=== PATIENT | male | born 1935 | race Caucasian/White ===

== ENCOUNTER 2016-07-06 07:51 | Inpatient (IN) | payer OTHER, MEDICARE ==
[~2016-07-06] VITALS: Ht 162.6 cm; Wt 74.0 kg
[~2016-07-06 07:51] MED LIST: Aspirin E.C. PO; CILOSTAZOL100 MG PO; ENALAPRIL MALEA20 MG PO; HYDRALAZINE HCL10 MG PO; HYDROCHLOROTHIA50 MG PO; Lopressor PO; NAPROSYN500 MG PO; TERAZOSIN HCL2 MG PO
[2016-07-06 08:35] LABS: EOSINOPHIL (%) 1.6 % (0-5); EOSINOPHIL COUNT 0.1 K/uL (0-0.3); IMMATURE GRANULOCYTE (%) 0.2 % (0.0-0.7); IMMATURE GRANULOCYTE COUNT 0.1 K/uL; MCH 31.7 PG (29.0-34.0); MCHC 34.8 G/DL (30.0-36.0); MCV 91.3 FL (86-99); MEAN PLAT.VOLUME 10.1 uM^3 (9.0-12.4); MONOCYTE (%) 8.2 % (3-12); MONOCYTE COUNT 0.4 K/uL (0-0.8); NEUTROPHIL (%) 69.3 % (45-76); NEUTROPHIL COUNT 3.4 K/uL (1.8-6.4); PLATELET COUNT 143 K/uL (156-360); RBC DIS.WIDTH-CV 13.6 % (11.8-14.6); RED BLOOD COUNT 4.38 M/uL (4.00-5.50); WHITE BLOOD COUNT 4.9 K/uL (4.1-10.2)
[2016-07-06 08:45] LABS: CHLORIDE 108 mEq/L (99-109); POTASSIUM 3.6 mEq/L (3.7-5.4); SODIUM 141 mEq/L (136-147)
[2016-07-06 08:46] LABS: INTER. NORMALIZED RATIO 1.1; PROTHROMBIN TIME 10.9 (9.2-11.2); PTT 27.5 (25-32)
[2016-07-06 08:48] LABS: ANION GAP 12 MEQ/L (2-14)
[2016-07-06 08:51] LABS: GFR ESTIMATE (CALCULATED) 56 mL/min/
[2016-07-06 08:52] LABS: UREA NITROGEN (BUN) 27 mg/dL (9-23)
[2016-07-06 08:54] LABS: TROP-I INTERPRETATION NEGATIVE; TROPONIN-I < 0.01 ng/mL (0.0-0.30)
[2016-07-06 08:57] LABS: GLUCOSE 146 mg/dL (70-99)
[2016-07-06] MEDS ORDERED: ASPIR-LOW81 MG PO (11:53)
[2016-07-06] MEDS ORDERED: LOPRESSOR25 MG PO (11:54)
[2016-07-06] MEDS ORDERED: TAMSULOSIN HCL0.4 MG PO (11:55)
[2016-07-06] MEDS ORDERED: LIPITOR40 MG PO (11:55)
[2016-07-06 17:25] VITALS: BP 175/80
[2016-07-06 18:11] LABS: TROP-I INTERPRETATION NEGATIVE; TROPONIN-I 0.02 ng/mL (0.0-0.30)
[2016-07-06 20:00] VITALS: BP 165/85
[2016-07-07] VITALS: BP 155/74
[2016-07-07 01:25] LABS: TROP-I INTERPRETATION NEGATIVE; TROPONIN-I 0.01 ng/mL (0.0-0.30)
[2016-07-07 04:00] VITALS: BP 165/74
[2016-07-07 06:36] LABS: ANION GAP 9 MEQ/L (2-14); CHLORIDE 106 MEQ/L (99-109); GFR ESTIMATE (CALCULATED) > 59 mL/min/; HDL CHOLESTEROL 32 MG/DL (Desirable>=40); LDL CHOLESTEROL 56 mg/dL (Desirable<100); NON-HDL CHOLESTEROL 77 mg/dL (Desirable<160); POTASSIUM 3.8 MEQ/L (3.7-5.4); SAMPLE HEMOLYSIS CHECK 0; SAMPLE ICTERIC CHECK 0; SAMPLE LIPEMIA CHECK 0; SODIUM 140 MEQ/L (136-147); TOTAL CHOLESTEROL 109 mg/dL (Desirable<200); TRIGLYCERIDES 104 MG/DL (Normal: <150); UREA NITROGEN (BUN) 21 mg/dL (9-23)
[2016-07-07 06:41] LABS: GLUCOSE 109 mg/dL (70-99)
[2016-07-07 08:36] VITALS: BP 174/81
[2016-07-07 11:31] VITALS: BP 127/60
[2016-07-07 16:16] VITALS: BP 183/77
[2016-07-07 19:21] VITALS: BP 150/65
[2016-07-08] VITALS: BP 135/78
[2016-07-08 04:00] VITALS: BP 159/82
[2016-07-08 08:18] VITALS: BP 186/90
[2016-07-08 13:24] VITALS: BP 165/72
[2016-07-08 16:02] VITALS: BP 184/84
[2016-07-08 18:59] VITALS: BP 156/65
[2016-07-09] VITALS: BP 148/75; BP 160/0
[2016-07-09 04:00] VITALS: BP 150/89
[2016-07-09 07:27] VITALS: BP 154/74
[2016-07-09 11:42] VITALS: BP 165/73
[2016-07-09] MEDS ORDERED: PROCARDIA20 MG PO (13:26)
== END 2016-07-09 14:27 | disposition home or self-care (01) | DRG 310 ==
LOC: EME 07:51 → EDOF 09:50 → 4EAST 09:50
PROVIDERS: Emergency Medicine; Internal Medicine
DX: R00.2 Palpitations (principal); N40.1 Benign prostatic hyperplasia with lower urinary tract symptoms; I27.2 Other secondary pulmonary hypertension; R33.8 Other retention of urine; I10 Essential (primary) hypertension; E78.5 Hyperlipidemia, unspecified; E87.6 Hypokalemia; N19 Unspecified kidney failure; I73.9 Peripheral vascular disease, unspecified; I44.0 Atrioventricular block, first degree; N13.9 Obstructive and reflux uropathy, unspecified; I35.0 Nonrheumatic aortic (valve) stenosis; R94.31 Abnormal electrocardiogram [ECG] [EKG]; I34.2 Nonrheumatic mitral (valve) stenosis; N28.1 Cyst of kidney, acquired; N20.0 Calculus of kidney; Z60.2 Problems related to living alone; Z87.891 Personal history of nicotine dependence; Z82.3 Family history of stroke; Z80.0 Family history of malignant neoplasm of digestive organs
CPT/HCPCS: 36415; 71010; 76770; 80048; 80053; 80061; 81003; 82306; 82607; 83036 GA; 84439; 84443; 84484; 85025; 85610; 85730; 87086; 93005; 93306; 99281; 99285; G0103; J3480

== ENCOUNTER 2016-07-21 21:21 | Inpatient (IN) | payer OTHER, MEDICARE ==
[~2016-07-21] VITALS: Ht 170.2 cm; Wt 69.1 kg
[~2016-07-21 21:21] MED LIST changes: +ASPIR-LOW81 MG PO; +LIPITOR40 MG PO; +LOPRESSOR25 MG PO; +PROCARDIA20 MG PO; +TAMSULOSIN HCL0.4 MG PO
[2016-07-21 21:45] LABS: HEMATOCRIT 38.1 % (38.0-50.0); MCH 30.9 PG (29.0-34.0); MCHC 34.4 G/DL (30.0-36.0); MCV 89.9 FL (86-99); RBC DIS.WIDTH-SD 41.9 % (39-53); RED BLOOD COUNT 4.24 M/uL (4.00-5.50)
[2016-07-21 21:56] LABS: CHLORIDE 105 mEq/L (99-109)
[2016-07-21 21:57] LABS: POTASSIUM 4.3 mEq/L (3.7-5.4); SODIUM 141 mEq/L (136-147)
[2016-07-21 21:59] LABS: GLUCOSE 113 mg/dL (70-99)
[2016-07-21 22:00] LABS: ANION GAP 13 MEQ/L (2-14)
[2016-07-21 22:01] LABS: TOTAL BILIRUBIN 0.8 mg/dL (0.0-1.0)
[2016-07-21 22:02] LABS: ALKALINE PHOSPHATASE 70 IU/L (3-129); GFR ESTIMATE (CALCULATED) 28 mL/min/
[2016-07-21 22:03] LABS: MEAN PLAT.VOLUME 10.4 uM^3 (9.0-12.4); PLATELET COUNT 205 K/uL (156-360)
[2016-07-21 22:04] LABS: UREA NITROGEN (BUN) 44 mg/dL (9-23)
[2016-07-21 22:54] LABS: LIPASE 42 U/L (1.0-51.0)
[2016-07-21 22:59] LABS: TROP-I INTERPRETATION NEGATIVE; TROPONIN-I 0.02 ng/mL (0.0-0.30)
[2016-07-21 23:27] LABS: ADD MIUA? NO; BILIRUBIN NEGATIVE; BLOOD NEGATIVE; COLOR YELLOW ((YELLOW)); GLUCOSE (STRIP) NEGATIVE; KETONES NEGATIVE; LEUKOCYTES NEGATIVE; NITRITE NEGATIVE; PROTEIN (STRIP) NEGATIVE; SPECIFIC GRAVITY 1.014 (1.000-1.030); UCUL ADDED? NO; UROBILINOGEN 0.2 MG/DL (0.2-1.0)
[2016-07-22 05:54] VITALS: BP 166/66
[2016-07-22 07:47] VITALS: BP 151/59
[2016-07-22 09:12] LABS: HEMATOCRIT 38.8 % (38.0-50.0); MCH 31.4 PG (29.0-34.0); MCHC 34.5 G/DL (30.0-36.0); MCV 90.9 FL (86-99); MEAN PLAT.VOLUME 10.8 uM^3 (9.0-12.4); PLATELET COUNT 206 K/uL (156-360); RBC DIS.WIDTH-CV 13.3 % (11.8-14.6); RBC DIS.WIDTH-SD 44.1 % (39-53); RED BLOOD COUNT 4.27 M/uL (4.00-5.50); WHITE BLOOD COUNT 5.6 K/uL (4.1-10.2)
[2016-07-22 09:32] LABS: ALKALINE PHOSPHATASE 67 IU/L (3-129); ANION GAP 10 MEQ/L (2-14); CHLORIDE 106 MEQ/L (99-109); GFR ESTIMATE (CALCULATED) 44 mL/min/; GLUCOSE 111 mg/dL (70-99); POTASSIUM 4.2 MEQ/L (3.7-5.4); SAMPLE HEMOLYSIS CHECK 0; SAMPLE ICTERIC CHECK 0; SAMPLE LIPEMIA CHECK 0; SODIUM 139 MEQ/L (136-147); UREA NITROGEN (BUN) 31 mg/dL (9-23)
[2016-07-22] MEDS ORDERED: LIPITOR40 MG PO (10:23)
[2016-07-22] MEDS ORDERED: HYDROCHLOROTHIA25 MG PO (10:24)
[2016-07-22 12:02] VITALS: BP 151/73
[2016-07-22 15:32] VITALS: BP 138/77
[2016-07-22 20:02] VITALS: BP 132/65
[2016-07-23] VITALS (7 sets, daily range): BP systolic 109–164; BP diastolic 53–74
[2016-07-24 03:29] VITALS: BP 121/58
[2016-07-24 07:37] VITALS: BP 143/65
[2016-07-24 12:17] VITALS: BP 125/60
[2016-07-24 15:31] VITALS: BP 142/69
[2016-07-24 23:21] VITALS: BP 153/70
[2016-07-25 08:30] VITALS: BP 118/55
== END 2016-07-25 10:46 | disposition home health service (06) | DRG 699 ==
LOC: EME 21:21 → 3EAST 07-22 02:31 → EDOF 07-22 02:31 → 3EAST 07-22 05:12
PROVIDERS: Internal Medicine
DX: N13.9 Obstructive and reflux uropathy, unspecified (principal); N17.9 Acute kidney failure, unspecified; K59.00 Constipation, unspecified; N40.1 Benign prostatic hyperplasia with lower urinary tract symptoms; R33.8 Other retention of urine; E86.0 Dehydration; K52.9 Noninfective gastroenteritis and colitis, unspecified; I10 Essential (primary) hypertension; E78.5 Hyperlipidemia, unspecified; N20.0 Calculus of kidney; N28.1 Cyst of kidney, acquired; K80.20 Calculus of gallbladder without cholecystitis without obstruction; I48.2 Chronic atrial fibrillation; Z80.0 Family history of malignant neoplasm of digestive organs; Z82.3 Family history of stroke; J43.9 Emphysema, unspecified; M19.90 Unspecified osteoarthritis, unspecified site
CPT/HCPCS: 74176; 80053; 81003; 83690; 84484; 85027; 93005; 99281; 99285; J7030

== ENCOUNTER 2017-03-28 23:02 | Observation (INO) | payer OTHER, MEDICARE ==
[~2017-03-28] VITALS: Ht 172.7 cm; Wt 73.1 kg
[~2017-03-28 23:02] MED LIST changes: +APRESOLINE50 MG PO; -HYDRALAZINE HCL10 MG PO; +HYDROCHLOROTHIA25 MG PO
[2017-03-28 23:38] LABS: HEMATOCRIT 35.9 % (38.0-50.0); MCH 31.5 PG (29.0-34.0); MCHC 33.7 G/DL (30.0-36.0); MCV 93.5 FL (86-99); MEAN PLAT.VOLUME 10.1 uM^3 (9.0-12.4); PLATELET COUNT 154 K/uL (156-360); RBC DIS.WIDTH-CV 13.4 % (11.8-14.6); RBC DIS.WIDTH-SD 45.8 % (39-53); RED BLOOD COUNT 3.84 M/uL (4.00-5.50); WHITE BLOOD COUNT 5.9 K/uL (4.1-10.2)
[2017-03-28 23:48] LABS: CHLORIDE 107 mEq/L (99-109); SODIUM 140 mEq/L (136-147)
[2017-03-28 23:50] LABS: GLUCOSE 110 mg/dL (70-99)
[2017-03-28 23:51] LABS: ANION GAP 10 MEQ/L (2-14)
[2017-03-28 23:53] LABS: GFR ESTIMATE (CALCULATED) 47 mL/min/
[2017-03-28 23:54] LABS: UREA NITROGEN (BUN) 30 mg/dL (9-23)
[2017-03-28 23:58] LABS: TROP-I INTERPRETATION NEGATIVE; TROPONIN-I < 0.01 ng/mL (0.0-0.30)
[2017-03-29] VITALS (7 sets, daily range): BP systolic 126–198; BP diastolic 26–88
[2017-03-29] MEDS ORDERED: FINASTERIDE5 MG PO (00:08)
[2017-03-29] MEDS ORDERED: COLACE100 MG PO (00:08)
[2017-03-29 06:47] LABS: ADD MIUA? NO; BILIRUBIN NEGATIVE; BLOOD NEGATIVE; COLOR YELLOW ((YELLOW)); GLUCOSE (STRIP) NEGATIVE; KETONES NEGATIVE; LEUKOCYTES NEGATIVE; NITRITE NEGATIVE; PROTEIN (STRIP) NEGATIVE; SPECIFIC GRAVITY 1.014 (1.000-1.030); UROBILINOGEN 0.2 MG/DL (0.2-1.0)
[2017-03-29 08:51] LABS: TROP-I INTERPRETATION NEGATIVE; TROPONIN-I 0.02 ng/mL (0.0-0.30)
[2017-03-29 15:39] LABS: TROP-I INTERPRETATION NEGATIVE; TROPONIN-I 0.02 ng/mL (0.0-0.30)
[2017-03-30 03:49] VITALS: BP 130/62
[2017-03-30 05:11] LABS: EOSINOPHIL (%) 2.8 % (0-5); EOSINOPHIL COUNT 0.1 K/uL (0-0.3); HEMATOCRIT 30.6 % (38.0-50.0); IMMATURE GRANULOCYTE (%) 0.6 % (0.0-0.7); INSTRUMENT ABS NEUTROPHIL CT 3.2 K/uL; LYMPHOCYTE COUNT 1.1 K/uL (1.0-2.8); MCV 94.2 FL (86-99); MEAN PLAT.VOLUME 10.1 uM^3 (9.0-12.4); MONOCYTE (%) 10.3 % (3-12); MONOCYTE COUNT 0.5 K/uL (0-0.8); NEUTROPHIL (%) 63.6 % (45-76); NEUTROPHIL COUNT 3.2 K/uL (1.8-6.4); PLATELET COUNT 126 K/uL (156-360); RBC DIS.WIDTH-CV 13.4 % (11.8-14.6); RBC DIS.WIDTH-SD 46.5 % (39-53); RED BLOOD COUNT 3.25 M/uL (4.00-5.50)
[2017-03-30 05:38] LABS: ALKALINE PHOSPHATASE 62 IU/L (3-129); ANION GAP 8 MEQ/L (2-14); CHLORIDE 109 MEQ/L (99-109); GFR ESTIMATE (CALCULATED) 56 mL/min/; GLUCOSE 90 mg/dL (70-99); POTASSIUM 3.8 MEQ/L (3.7-5.4); SAMPLE HEMOLYSIS CHECK 0; SAMPLE ICTERIC CHECK 0; SAMPLE LIPEMIA CHECK 0; SODIUM 141 MEQ/L (136-147); TOTAL BILIRUBIN 1.5 MG/DL (0.0-1.0); UREA NITROGEN (BUN) 24 mg/dL (9-23)
[2017-03-30 07:46] VITALS: BP 190/82
[2017-03-30 10:52] VITALS: BP 138/63
[2017-03-30 16:00] VITALS: BP 178/79
== END 2017-03-30 18:42 | disposition home or self-care (01) ==
LOC: EME 23:02 → EXP 23:02 → EDOF 03-29 01:14 → 5WEST 03-29 01:14 → EDOF 03-29 01:14 → ENRESERV 03-29 01:16 → 5WEST 03-29 02:11
PROVIDERS: Internal Medicine
DX: I12.9 Hypertensive chronic kidney disease with stage 1 through stage 4 chronic kidney disease, or unspecified chronic kidney disease (principal); N18.9 Chronic kidney disease, unspecified; D64.9 Anemia, unspecified; E78.5 Hyperlipidemia, unspecified; N40.0 Benign prostatic hyperplasia without lower urinary tract symptoms; I48.0 Paroxysmal atrial fibrillation; Z87.891 Personal history of nicotine dependence; D69.6 Thrombocytopenia, unspecified; Z87.11 Personal history of peptic ulcer disease; I35.0 Nonrheumatic aortic (valve) stenosis; I73.9 Peripheral vascular disease, unspecified; Z80.0 Family history of malignant neoplasm of digestive organs; Z82.3 Family history of stroke; Z79.82 Long term (current) use of aspirin
CPT/HCPCS: 71020; 80048; 80053; 81003; 84484; 85025; 85027; 93005; 99281; 99284; G0378; J2270; J7030

== ENCOUNTER 2017-04-26 09:51 | Day surgery (SDC) | payer OTHER, MEDICARE ==
[~2017-04-26] VITALS: Ht 170.2 cm; Wt 68.0 kg
[~2017-04-26 09:51] MED LIST changes: +COLACE100 MG PO; +FINASTERIDE5 MG PO
== END 2017-04-26 17:10 | disposition short-term general hospital (02) ==
LOC: CATH 09:51 → ENRESERV 14:27 → CANRESERV 14:27 → 2SOUTH 14:28 → ENRESERV 15:47 → 2SOUTH 17:10
DX: I25.119 Atherosclerotic heart disease of native coronary artery with unspecified angina pectoris (principal); E78.5 Hyperlipidemia, unspecified; I12.9 Hypertensive chronic kidney disease with stage 1 through stage 4 chronic kidney disease, or unspecified chronic kidney disease; N18.9 Chronic kidney disease, unspecified; I65.23 Occlusion and stenosis of bilateral carotid arteries; I35.0 Nonrheumatic aortic (valve) stenosis; Z79.82 Long term (current) use of aspirin; Z87.891 Personal history of nicotine dependence
CPT/HCPCS: 85347; C1769; C1887; G0378; J1644; J2250; J3010

== ENCOUNTER 2017-06-19 18:51 | Emergency (ER) | payer OTHER, MEDICARE ==
[~2017-06-19] VITALS: Ht 167.6 cm; Wt 70.5 kg
[2017-06-19 20:13] LABS: APPEARANCE CLEAR ((CLEAR)); BILIRUBIN NEGATIVE; BLOOD NEGATIVE; COLOR YELLOW ((YELLOW)); GLUCOSE (STRIP) 50; KETONES NEGATIVE; LEUKOCYTES NEGATIVE; NITRITE NEGATIVE; PROTEIN (STRIP) NEGATIVE; SPECIFIC GRAVITY 1.016 (1.000-1.030); UCUL ADDED? NO
[2017-06-19 21:05] LABS: HEMATOCRIT 33.5 % (38.0-50.0); HEMOGLOBIN 11.2 G/DL (12.5-16.6); MCH 31.8 PG (29.0-34.0); MCHC 33.4 G/DL (30.0-36.0); MCV 95.2 FL (86-99); PLATELET COUNT 178 K/uL (156-360); RBC DIS.WIDTH-CV 14.2 % (11.8-14.6); RBC DIS.WIDTH-SD 49.3 % (39-53); RED BLOOD COUNT 3.52 M/uL (4.00-5.50); WHITE BLOOD COUNT 5.5 K/uL (4.1-10.2)
[2017-06-19 21:18] LABS: CHLORIDE 109 mEq/L (99-109); SODIUM 140 mEq/L (136-147)
[2017-06-19 21:21] LABS: GLUCOSE 105 mg/dL (70-99)
[2017-06-19 21:22] LABS: TOTAL BILIRUBIN 0.8 mg/dL (0.0-1.0)
[2017-06-19 21:24] LABS: ALKALINE PHOSPHATASE 84 IU/L (3-129); CREATININE 1.2 mg/dL (0.6-1.3); GFR ESTIMATE (CALCULATED) > 59 mL/min/ (58.99-99999)
[2017-06-19 21:25] LABS: UREA NITROGEN (BUN) 24 mg/dL (9-23)
[2017-06-19 21:26] LABS: AST (GOT) 16 IU/L (2-34)
[2017-06-19 21:27] LABS: ALT (GPT) 13 IU/L (3-49)
[2017-06-19 23:06] LABS: TROP-I INTERPRETATION NEGATIVE; TROPONIN-I 0.01 ng/mL (0.0-0.30)
[2017-06-20 04:10] VITALS: BP 176/86
== END 2017-06-20 04:26 | disposition home or self-care (01) ==
LOC: EME 18:51
PROC: 0T9B70Z Drainage of Bladder with Drainage Device, Via Natural or Artificial Opening (ICD-10-PCS; principal; 2017-06-20)
DX: R60.0 Localized edema (principal); R33.8 Other retention of urine; N40.1 Benign prostatic hyperplasia with lower urinary tract symptoms; I44.0 Atrioventricular block, first degree; Z79.02 Long term (current) use of antithrombotics/antiplatelets; E78.5 Hyperlipidemia, unspecified; Z87.891 Personal history of nicotine dependence; Z95.5 Presence of coronary angioplasty implant and graft; Z79.82 Long term (current) use of aspirin
CPT/HCPCS: 71046; 80053; 81003; 83880; 84484; 85027; 93005; 93970; 99281; 99285

== ENCOUNTER 2018-01-24 09:11 | Emergency (ER) | payer OTHER, MEDICARE ==
[~2018-01-24] VITALS: Ht 172.7 cm; Wt 70.6 kg
[2018-01-24 09:42] LABS: BASOPHIL (%) 0.5 % (0-1); EOSINOPHIL (%) 3.1 % (0-5); EOSINOPHIL COUNT 0.2 K/uL (0-0.3); HEMATOCRIT 34.5 % (38.0-50.0); HEMOGLOBIN 11.7 G/DL (12.5-16.6); IMMATURE GRANULOCYTE (%) 0.9 % (0.0-0.7); LYMPHOCYTE (%) 18.3 % (15-42); MCH 31.2 PG (29.0-34.0); MCHC 33.9 G/DL (30.0-36.0); MONOCYTE (%) 9.7 % (3-12); MONOCYTE COUNT 0.5 K/uL (0-0.8); NEUTROPHIL (%) 67.5 % (45-76); NEUTROPHIL COUNT 3.7 K/uL (1.8-6.4); PLATELET COUNT 159 K/uL (156-360); RBC DIS.WIDTH-CV 13.5 % (11.8-14.6); RBC DIS.WIDTH-SD 46.2 % (39-53); RED BLOOD COUNT 3.75 M/uL (4.00-5.50); WHITE BLOOD COUNT 5.5 K/uL (4.1-10.2)
[2018-01-24 09:50] LABS: PTT 27.5 SEC (25-37)
[2018-01-24 09:53] LABS: CHLORIDE 108 mEq/L (99-109); POTASSIUM 3.9 mEq/L (3.7-5.4); SODIUM 140 mEq/L (136-147)
[2018-01-24 09:55] LABS: GLUCOSE 113 mg/dL (70-99)
[2018-01-24 09:59] LABS: CREATININE 1.3 mg/dL (0.6-1.3); GFR ESTIMATE (CALCULATED) 56 mL/min/ (58.99-99999)
[2018-01-24 10:00] LABS: UREA NITROGEN (BUN) 24 mg/dL (9-23)
[2018-01-24 10:03] LABS: TROP-I INTERPRETATION NEGATIVE; TROPONIN-I < 0.01 ng/mL (0.0-0.30)
[2018-01-24 12:18] VITALS: BP 170/79
== END 2018-01-24 12:19 | disposition home or self-care (01) ==
LOC: EME 09:11
PROVIDERS: Emergency Medicine
DX: R42 Dizziness and giddiness (principal); I11.0 Hypertensive heart disease with heart failure; I50.9 Heart failure, unspecified; E78.5 Hyperlipidemia, unspecified; Z79.82 Long term (current) use of aspirin; Z87.891 Personal history of nicotine dependence
CPT/HCPCS: 71045; 80048; 84484; 85025; 85610; 85730; 99281; 99283